=== PATIENT | male | born 1955 | race Caucasian/White ===

== ENCOUNTER 2020-12-22 13:49 | Outpatient (REF) | payer OTHER, SELFPAY ==
[2020-12-24 12:31] LABS: COVID-19 RT-PCR UVMMC Result Negative (Negative)
== END 2020-12-22 13:50 | disposition home or self-care (01) ==
LOC: NCHCN 13:49
PROVIDERS: PCP Nurse Practitioner Family; Visit Provider Internal Medicine
DX: Z20.822 Contact with and (suspected) exposure to COVID-19 (principal)
CPT/HCPCS: U0003